=== PATIENT | female | born 1960 | race Two or more races ===

== ENCOUNTER 2017-10-27 16:15 | Emergency (ER) | payer MEDICAID ==
[~2017-10-27] VITALS: Ht 167.6 cm; Wt 74.8 kg
[~2017-10-27 16:15] MED LIST: CIPROFLOXACIN500 M2 ORAL; CYCLOBENZAPRINE10 MG ORAL; IBUPROFEN600 MG ORAL; LEVAQUIN750 MG ORAL; NORCO 5-325 TA1 EAC1 ORAL; SYNTHROID125 MCG ORAL
--- NOTE | 2017-10-27 16:41 | Emergency Room Report ---
History of Present Illness General Chief Complaint: Back Pain-No Injury Source: Patient Present Illness HPI Patient present with complaints of left upper back pain Reports that she has had this off-and-on for several years she has been told previously that she did have a bladder infection Also has been told that it was a muscle strain before Patient reports several imaging studies at this time reports that the pain came on 2 days ago feels pain with trying to take her arm across her body and with touch Denies any rash Allergies: Coded Allergies: No Known Allergies (Unverified , 06/07/14) Patient History Past Medical History: see triage record Pertinent Family History: none Reviewed Nursing Documentation: PMH: Agreed; PSxH: Agreed Nursing Documentation-PMH Past Medical History: No History, Except For Review of Systems All Other Systems: negative except mentioned in HPI Physical Exam Vital Signs Date Time Temp Pulse Resp B/P (MAP) Pulse Ox O2 Delivery O2 Flow Rate FiO2 10/27/17 16:20 97.8 63 16 117/77 95 Room Air 97.9 Sp02 EP Interpretation: reviewed, normal General Appearance: well appearing, no apparent distress Head: normocephalic, atraumatic Eyes: bilateral eye PERRL, bilateral eye EOMI ENT: hearing grossly normal, normal pharynx, TMs + canals normal, uvula midline Neck: full range of motion, supple, no meningismus, no bony tend Respiratory: lungs clear, normal breath sounds, no rhonchi, no respiratory distress, no retraction, no accessory muscle use Cardiovascular #1: normal peripheral pulses, regular rate, rhythm, no edema, no gallop, no JVD, no murmur Gastrointestinal: normal bowel sounds, non tender, soft, no mass, no organomegaly, non-distended, no guarding, no hernia, no pulsatile mass, no rebound Genitourinary: no CVA tenderness Musculoskeletal: normal inspection, other - Pinpoint discomfort to the left tip of the scapula on the left side no rash no fluctuance no erythema 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, 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, 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 physical III-XII nml as tested, motor strength/ tone normal, sensory intact Psychiatric: mood/affect normal Skin: normal color, no rash, warm/dry, palpation normal Lymphatic: normal inspection, no adenopathy Medical Decision Making Diagnostic Impression: Primary Impression: Back pain ER Course Multiple differentials are considered Given the patient's location of pain differentials such as UTI Pyelonephritis Kidney stone are entertained Patient's hemodynamically stable has a benign medical evaluation there does appear to be some mechanical/muscle skeletal component there is also a significant level of chronicity Patient's urine sample was clear for any infection there was a small amount of blood Does not appear to be consistent with pyelonephritis or kidney stone given the description of pain and radiation Patient stable for close outpatient follow-up Discussing pain medication patient reports that she has been taking Motrin and Tylenol and would like a prescription for something stronger At this time it was discussed with the patient that her presentation requires further primary physician follow-up for further narcotic type medicine is not indicated at this emergency room visit Labs Test 10/27/17 16:36 Urine Color Pale yellow Urine Appearance Clear Urine pH 6 (4.5-8.0) Urine Specific [place] 1.015 (1.005-1.035) Urine Protein Negative (NEGATIVE) Urine Glucose (UA) Negative (NEGATIVE) Urine Ketones Negative (NEGATIVE) Urine Occult Blood 3+ (NEGATIVE) Urine Nitrite Negative (NEGATIVE) Urine Bilirubin Negative (NEGATIVE) Urine Urobilinogen Normal MG/DL (0.0-1.0) Urine Leukocyte Esterase Negative (NEGATIVE) Urine RBC 5-10 /HPF (0 - 2) Urine WBC 0-2 /HPF (0 - 2) Urine Squamous Epithelial Cells None /LPF (NONE/OCC) Urine Bacteria None /HPF (NONE) Last Vital Signs Date Time Temp Pulse Resp B/P (MAP) Pulse Ox O2 Delivery O2 Flow Rate FiO2 10/27/17 16:20 97.8 63 16 117/77 95 Room Air 97.9 Status: improved Disposition: HOME, SELF-CARE Condition: Improved Scripts Ibuprofen* (MOTRIN*) 600 Mg Tablet 600 MG ORAL Q8H PRN for For Pain, #20 TAB 0 Refills Prov: Reyna Miller DO 10/27/17 Additional Instructions: Patient is provided with the discharge instructions notified to follow up with primary doctor in the next 2-3 days otherwise return to the er with any worsening symptoms. Please note that this report is being documented using [employer] technology. This can lead to erroneous entry secondary to incorrect interpretation by the dictating instrument. Reyna Miller DO Oct 27, 2017 16:41
[2017-10-27 16:54] LABS: APPEARANCE,URINE CLEAR; BILIRUBIN, URINE NEGATIVE (NEGATIVE); COLOR,URINE PALE YELLOW; GLUCOSE, URINE (UA) NEGATIVE (NEGATIVE); KETONES,URINE NEGATIVE (NEGATIVE); LEUKOCYTE ESTERASE ,URINE NEGATIVE (NEGATIVE); NITRITE,URINE NEGATIVE (NEGATIVE); PH,URINE 6 (4.5-8.0); PROTEIN,URINE NEGATIVE (NEGATIVE); UROBILINOGEN,URINE NORMAL MG/DL (0.0-1.0)
[2017-10-27 17:02] VITALS: BP 117/77
[2017-10-27] MEDS ORDERED: IBUPROFEN600 MG ORAL (17:40)
[2017-10-27 19:15] VITALS: BP 117/77
== END 2017-10-27 17:45 | disposition home or self-care (01) ==
LOC: EMR 17:06
DX: M54.6 Pain in thoracic spine (principal)
CPT/HCPCS: 81003; 99283